=== PATIENT | female | born 1960 | race African-American/Black ===

== ENCOUNTER 2018-03-09 17:15 | Observation (INO) ==
[2018-03-09] MEDS ORDERED: SODIUM CHLORIDE 0.9% 1,000 ML IV STA (20:18)
[2018-03-09] MEDS ORDERED: DICYCLOMINE 20 MG/2 ML AMP IM ONE (20:18)
[2018-03-09] MEDS ORDERED: METOCLOPRAMIDE 10 MG/2 ML VIAL IV STA (20:18)
[2018-03-09 21:11] LABS: Basophils % 0.5 % (0.0-0.8); Eosinophils % 0.4 % (0.00-10.9); Hematocrit 38.6 VOL% (35.7-47.0); Immature Granulocytes % 0.5 %; Immature Granulocytes Absolute 0.04 #; Lymphocytes # 0.9 10*3/uL (1.4-4.0); Lymphocytes % 10.6 % (21.3-54.2); Mean Corpuscular HGB Conc 33.7 GM/DL (32-36); Mean Corpuscular Hemoglobin 26 PG (27-34); Mean Corpuscular Volume 77.7 FL (87-102); Mean Platelet Volume 12.2 FL (9.6-12.0); Monocytes # 0.6 10*3/uL (0.11-0.8); Monocytes % 7.9 % (1.7-12.7); Neutrophils # 6.5 10*3/uL (1.4-7.4); Neutrophils % 80.1 % (38.7-73.9); Platelet Count 170 T/CUMM (130-400); Red Blood Count 4.97 MC/CUMM (3.8-5.5); Red Cell Distribution Width 13.3 % (9.3-17.3); White Blood Count 8.1 T/CUMM (4-12)
[2018-03-09] MEDS ORDERED: POTASSIUM BICARB EFFERVESCENT 25 MEQ TABLET PO ONE (21:17)
[2018-03-09 21:38] LABS: Albumin 3.5 G/DL (3.4-5.0); Bilirubin,Total 0.4 MG/DL (0.2-1.0); Calcium 10.9 MG/DL (8.5-10.1); Osmolality,Calculated 286.5 MOS/KG (273-304); Potassium 4.6 MMOL/L (3.5-5.1); Total Protein 7.6 G/DL (6.4-8.3)
[2018-03-09] MEDS ORDERED: INSULIN REGULAR 100 UNIT/ML IV STA (21:53)
[2018-03-09 21:59] LABS: Apearance,Urine CLEAR (Clear); Bacteria,Urine Occasional /HPF (Few); Bilirubin,Urine Negative (Negative); Blood, Urine Negative (Negative); Glucose,Urine (UA) >=500 mg/dL (Negative); Ketones,Urine 5 mg/dL (Negative); Nitrite,Urine Negative (Negative); Protein,Urine Negative; RBC,Urine 2 /HPF (0-4); Squamous Epithelial Cell,Urine Occasional /HPF (0-10); Urine Color Yellow (Yellow); Urine Specific Gravity 1.021 (1.001-1.035); Urine Urobilinogen < 2.0 EU/DL (0.2-1.0); WBC,Urine 5 /HPF (0-6)
[2018-03-09] MEDS ORDERED: ACETAMINOPHEN 325 MG TABLET PO PRN (23:04)
[2018-03-09] MEDS ORDERED: ONDANSETRON 4 MG/2 ML VIAL IV PRN (23:04)
[2018-03-09] MEDS ORDERED: HYDROmorphone 2 MG/1 ML VIAL IV PRN (23:24)
[2018-03-09] MEDS ORDERED: ENOXAPARIN 40 MG/0.4 ML SYRINGE SUBCUT SCH (23:30)
[2018-03-09] MEDS ORDERED: DEXTROSE 50% 25 GM/50 ML VIAL IV PRN (23:51)
[2018-03-09] MEDS ORDERED: GLUCAGON 1 MG VIAL IM PRN (23:51)
[2018-03-10] MEDS: SODIUM CHLORIDE 0.9% 1,000 ML IV SCH ×3 (01:44→19:23)
[2018-03-10 03:13] LABS: Basophils % 0.4 % (0.0-0.8); Eosinophils # 0.1 10*3/uL (0.0-0.87); Eosinophils % 0.7 % (0.00-10.9); Hematocrit 34.5 VOL% (35.7-47.0); Hemoglobin 11.4 GM/DL (12.0-16.0); Immature Granulocytes % 0.3 %; Immature Granulocytes Absolute 0.02 #; Lymphocytes # 1.2 10*3/uL (1.4-4.0); Lymphocytes % 17.4 % (21.3-54.2); Mean Corpuscular Hemoglobin 26 PG (27-34); Mean Corpuscular Volume 77.4 FL (87-102); Mean Platelet Volume 11.9 FL (9.6-12.0); Monocytes # 0.5 10*3/uL (0.11-0.8); Monocytes % 7.4 % (1.7-12.7); Neutrophils # 5.3 10*3/uL (1.4-7.4); Neutrophils % 73.8 % (38.7-73.9); Platelet Count 158 T/CUMM (130-400); Red Blood Count 4.46 MC/CUMM (3.8-5.5); Red Cell Distribution Width 13.7 % (9.3-17.3); White Blood Count 7.1 T/CUMM (4-12)
[2018-03-10 03:39] LABS: Calcium 9.9 MG/DL (8.5-10.1); Potassium 4.2 MMOL/L (3.5-5.1); Thyroid Stimulating Hormone 0.046 uIU/ml (0.358-3.74)
[2018-03-10 07:19] LABS: % Iron Saturation 8.5 % (18-50)
[2018-03-10] MEDS ORDERED: LEVOTHYROXINE 150 MCG TABLET PO SCH (07:30)
[2018-03-10] MEDS ORDERED: glyBURIDE 5 MG TABLET PO SCH (08:00)
[2018-03-10] MEDS: GABAPENTIN 100 MG CAPSULE PO SCH ×3 (08:12→21:27)
[2018-03-10] MEDS: BISACODYL 5 MG TABLET PO SCH ×4 (08:12→23:50)
[2018-03-10] MEDS: LISINOPRIL/HCTZ 20-12.5 MG TABLET PO SCH (08:12)
[2018-03-10] MEDS: ASPIRIN EC 81 MG TABLET PO SCH (08:12)
[2018-03-10] MEDS: INSULIN REGULAR 100 UNIT/ML SUBCUT SCH ×4 (08:30→21:28)
[2018-03-10] MEDS: INSULIN NPH/REGULAR 70/30 100 UNIT/ML SUBCUT SCH ×2 (08:30→19:34)
[2018-03-10] MEDS ORDERED: PRAMOXINE/HYDROCORTISONE RECTAL FOAM 10 GM CAN TOP PRN (12:05)
[2018-03-10] MEDS ORDERED: POLYETHYLENE GLYCOL 3350/ELECTROLYTES 4,000 ML BOTTLE PO ONE (18:00)
[2018-03-10] MEDS ORDERED: MAGNESIUM CITRATE 300 ML BOTTLE PO ONE (21:00)
[2018-03-11] MEDS: SODIUM CHLORIDE 0.9% 1,000 ML IV SCH (02:58)
[2018-03-11 05:06] LABS: Basophils % 0.4 % (0.0-0.8); Eosinophils # 0.1 10*3/uL (0.0-0.87); Hematocrit 33.1 VOL% (35.7-47.0); Hemoglobin 10.6 GM/DL (12.0-16.0); Immature Granulocytes % 0.2 %; Immature Granulocytes Absolute 0.01 #; Lymphocytes # 2.2 10*3/uL (1.4-4.0); Lymphocytes % 43.2 % (21.3-54.2); Mean Corpuscular Hemoglobin 25 PG (27-34); Mean Corpuscular Volume 79.4 FL (87-102); Mean Platelet Volume 12.4 FL (9.6-12.0); Monocytes # 0.5 10*3/uL (0.11-0.8); Monocytes % 10.2 % (1.7-12.7); Neutrophils # 2.2 10*3/uL (1.4-7.4); Platelet Count 144 T/CUMM (130-400); Red Blood Count 4.17 MC/CUMM (3.8-5.5); Red Cell Distribution Width 13.7 % (9.3-17.3)
[2018-03-11 05:25] LABS: Calcium 9.5 MG/DL (8.5-10.1); Free T4 (Free Thyroxine) 1.82 NG/DL (0.76-1.46); Osmolality,Calculated 279.5 MOS/KG (273-304); Potassium 3.9 MMOL/L (3.5-5.1)
[2018-03-11] MEDS ORDERED: LEVOTHYROXINE 125 MCG TABLET PO SCH (06:30)
[2018-03-11] MEDS ORDERED: FERROUS SULFATE 325 MG TABLET PO SCH (09:30)
[2018-03-11] MEDS: INSULIN NPH/REGULAR 70/30 100 UNIT/ML SUBCUT SCH (09:47)
[2018-03-11] MEDS: INSULIN REGULAR 100 UNIT/ML SUBCUT SCH ×2 (09:47→13:30)
[2018-03-11] MEDS: GABAPENTIN 100 MG CAPSULE PO SCH (09:48)
[2018-03-11] MEDS: ASPIRIN EC 81 MG TABLET PO SCH (09:48)
[2018-03-11] MEDS: LISINOPRIL/HCTZ 20-12.5 MG TABLET PO SCH (09:48)
[2018-03-11] MEDS ORDERED: LIDOCAINE 100 MG/5 ML SYRINGE ONE (10:00)
[2018-03-11] MEDS ORDERED: PROPOFOL 200 MG/20 ML VIAL IV ONE (10:00)
[2018-03-11 13:26] VITALS: BP 112/75
== END 2018-03-11 14:40 | disposition home or self-care (01) ==
LOC: N.ED 17:15 → N.EDINP 17:15 → N.4E 03-10 00:29
PROVIDERS: ADMIT Internal Medicine; ATTEND Internal Medicine

== ENCOUNTER 2020-04-18 08:20 | Inpatient (IN) ==
[2020-04-18] MEDS ORDERED: SODIUM CHLORIDE 0.9% 1,000 ML IV STA (08:57)
[2020-04-18] MEDS ORDERED: DEXAMETHASONE 4 MG/1 ML VIAL IV STA (08:58)
[2020-04-18 09:08] LABS: Basophils % 0.4 % (0.0-0.8); Hematocrit 37.7 VOL% (35.7-47.0); Hemoglobin 12.7 GM/DL (12.0-16.0); Immature Granulocytes % 0.4 %; Immature Granulocytes Absolute 0.02 #; Lymphocytes # 1.2 10*3/uL (1.4-4.0); Lymphocytes % 22.4 % (21.3-54.2); Mean Corpuscular HGB Conc 33.7 GM/DL (32-36); Mean Corpuscular Volume 79.5 FL (87-102); Mean Platelet Volume 10.3 FL (9.6-12.0); Monocytes % 15.8 % (1.7-12.7); Platelet Count 161 T/CUMM (130-400); Red Blood Count 4.74 MC/CUMM (3.8-5.5); Red Cell Distribution Width 13.9 % (9.3-17.3); White Blood Count 5.5 T/CUMM (4-12)
[2020-04-18 09:20] LABS: INR 1.1; PT Patient Result 11.7 SECS (9.8-11.9)
[2020-04-18 09:27] LABS: Lymphocytes 20 % (20-55); Platelet Estimate Adequate; Segmented Neutrophils 72 % (50-85); Total Cells Counted 100
[2020-04-18 09:28] LABS: Hypochromasia Slight; Microcytosis 1+; Ovalocytes Slight
[2020-04-18] MEDS ORDERED: DILTIAZEM 50 MG/10 ML VIAL IV STA (09:37)
[2020-04-18] MEDS ORDERED: dilTIAZem Drip 125 MG/125 ML PREMIX IV ONE (09:37)
[2020-04-18 09:38] LABS: Albumin 2.8 G/DL (3.4-5.0); Bilirubin,Total 0.6 MG/DL (0.2-1.0); Calcium 9.6 MG/DL (8.5-10.1); Ferritin 844.6 ng/ml (8-252); Osmolality,Calculated 265.7 MOS/KG (273-304); Total Protein 6.5 G/DL (6.4-8.3)
[2020-04-18] MEDS ORDERED: DILTIAZEM 25 MG/5 ML VIAL IV ONE (09:38)
[2020-04-18] MEDS: dilTIAZem Drip 125 MG/125 ML PREMIX IV SCH (09:41)
[2020-04-18] MEDS ORDERED: ENOXAPARIN 100 MG/ML SYRINGE SUBCUT STA (10:25)
[2020-04-18] MEDS ORDERED: ENOXAPARIN 120 MG/0.8 ML SYRINGE SUBCUT ONE (10:41)
[2020-04-18] MEDS ORDERED: ONDANSETRON 4 MG/2 ML VIAL IV PRN (10:58)
[2020-04-18] MEDS ORDERED: ACETAMINOPHEN 325 MG TABLET PO PRN (10:58)
[2020-04-18] MEDS: SODIUM CHLORIDE 0.9% 1,000 ML IV SCH ×2 (11:10→21:45)
[2020-04-18] MEDS ORDERED: GLUCAGON 1 MG VIAL IM PRN (14:11)
[2020-04-18] MEDS ORDERED: DEXTROSE 50% 25 GM/50 ML VIAL IV PRN (14:11)
[2020-04-18 15:05] LABS: Thyroid Stimulating Hormone 0.631 uIU/ml (0.358-3.74)
[2020-04-18] MEDS ORDERED: METHOTREXATE 2.5 MG TABLET PO SCH (16:00)
[2020-04-18] MEDS ORDERED: REMDESIVIR 200 MG in SODIUM CHLORIDE 0.9% 210 ML IV ONE (17:00)
[2020-04-18] MEDS ORDERED: SODIUM CHLORIDE 0.9% 100 ML IV ONE (17:08)
[2020-04-18] MEDS: DEXAMETHASONE 4 MG/1 ML VIAL IV SCH (17:12)
[2020-04-18] MEDS: cefTRIAXone 1,000 MG in SYRINGE 1 EACH IV SCH (17:12)
[2020-04-18] MEDS: INSULIN LISPRO 100 UNIT/ML SUBCUT SCH ×2 (18:00→21:45)
[2020-04-18] MEDS: BISOPROLOL 5 MG TABLET PO SCH ×2 (18:42→21:45)
[2020-04-18] MEDS ORDERED: MAGNESIUM SULF RIDER 2 GM in PREMIX 1 EACH IV ONE (18:46)
[2020-04-18] MEDS: ATORVASTATIN 10 MG TABLET PO SCH (21:45)
[2020-04-18] MEDS: FAMOTIDINE 20 MG TABLET PO SCH (21:45)
[2020-04-18] MEDS: glipiZIDE 5 MG TABLET PO SCH (21:45)
[2020-04-18] MEDS: GABAPENTIN 300 MG CAPSULE PO SCH (21:45)
[2020-04-18] MEDS: MAGNESIUM CHLORIDE 64 MG TABLET PO SCH (21:45)
[2020-04-18] MEDS: BENZONATATE 100 MG CAPSULE PO PRN (21:45)
[2020-04-18] MEDS: DOCUSATE SODIUM 100 MG CAPSULE PO SCH (21:45)
[2020-04-18] MEDS: ASCORBIC ACID 500 MG TABLET PO SCH (21:45)
[2020-04-19] MEDS: ALBUTEROL INHALER 18 GM INH SCH ×5 (00:31→18:09)
[2020-04-19] MEDS: SODIUM CHLORIDE 0.9% 1,000 ML IV SCH ×5 (02:58→21:05)
[2020-04-19] MEDS: DEXAMETHASONE 4 MG/1 ML VIAL IV SCH ×2 (04:17→16:26)
[2020-04-19] MEDS: LEVOTHYROXINE 150 MCG TABLET PO SCH (06:06)
[2020-04-19 06:32] LABS: Basophils % 0.3 % (0.0-0.8); Hematocrit 33.4 VOL% (35.7-47.0); Hemoglobin 11.1 GM/DL (12.0-16.0); Immature Granulocytes % 0.9 %; Immature Granulocytes Absolute 0.03 #; Lymphocytes # 0.7 10*3/uL (1.4-4.0); Lymphocytes % 19.6 % (21.3-54.2); Mean Corpuscular HGB Conc 33.2 GM/DL (32-36); Mean Corpuscular Volume 80.9 FL (87-102); Mean Platelet Volume 11.1 FL (9.6-12.0); Monocytes % 11.7 % (1.7-12.7); Neutrophils % 67.5 % (38.7-73.9); Platelet Count 171 T/CUMM (130-400); Red Blood Count 4.13 MC/CUMM (3.8-5.5); White Blood Count 3.3 T/CUMM (4-12)
[2020-04-19 06:58] LABS: Band Neutrophils 2 % (0-10); Hypochromasia 1+; Lymphocytes 15 % (20-55); Microcytosis 1+; Platelet Estimate Adequate; Segmented Neutrophils 69 % (50-85); Total Cells Counted 100
[2020-04-19 07:00] LABS: Blood Urea Nitrogen 27 MG/DL (7-18); Calcium 9.3 MG/DL (8.5-10.1); Estimated Glom Filtration Rate 49 ML/MIN; Glucose 322 MG/DL (74-106); Osmolality,Calculated 282.4 MOS/KG (273-304); Troponin I < 0.015 NG/ML (0.00-0.045)
[2020-04-19] MEDS: INSULIN LISPRO 100 UNIT/ML SUBCUT SCH ×4 (09:16→21:04)
[2020-04-19] MEDS: ENOXAPARIN 120 MG/0.8 ML SYRINGE SUBCUT SCH (09:16)
[2020-04-19] MEDS: BISOPROLOL 5 MG TABLET PO SCH (09:16)
[2020-04-19] MEDS: DOCUSATE SODIUM 100 MG CAPSULE PO SCH ×2 (09:17→20:20)
[2020-04-19] MEDS: ASCORBIC ACID 500 MG TABLET PO SCH ×2 (09:17→20:20)
[2020-04-19] MEDS: glipiZIDE 5 MG TABLET PO SCH ×2 (09:18→20:20)
[2020-04-19] MEDS: BENZONATATE 100 MG CAPSULE PO PRN ×2 (09:18→20:20)
[2020-04-19] MEDS: GABAPENTIN 300 MG CAPSULE PO SCH ×3 (09:18→20:20)
[2020-04-19] MEDS: MAGNESIUM CHLORIDE 64 MG TABLET PO SCH ×2 (09:18→20:20)
[2020-04-19] MEDS: ASPIRIN EC 81 MG TABLET PO SCH (09:18)
[2020-04-19] MEDS: PANTOPRAZOLE 40 MG TABLET PO SCH (09:18)
[2020-04-19] MEDS: FAMOTIDINE 20 MG TABLET PO SCH ×2 (09:19→20:20)
[2020-04-19] MEDS: dilTIAZem Drip 125 MG/125 ML PREMIX IV SCH (10:25)
[2020-04-19] MEDS: REMDESIVIR 100 MG in SODIUM CHLORIDE 0.9% 230 ML IV SCH (11:55)
[2020-04-19] MEDS ORDERED: SODIUM CHLORIDE 0.9% 1,000 ML IV PRN (13:37)
[2020-04-19] MEDS: cefTRIAXone 1,000 MG in SYRINGE 1 EACH IV SCH (16:25)
[2020-04-19] MEDS: ATORVASTATIN 10 MG TABLET PO SCH (20:20)
[2020-04-19] MEDS: carvediloL 3.125 MG TABLET PO SCH (20:23)
[2020-04-20] MEDS: ALBUTEROL INHALER 18 GM INH SCH ×4 (00:20→19:32)
[2020-04-20] MEDS: DEXAMETHASONE 4 MG/1 ML VIAL IV SCH ×2 (04:16→16:41)
[2020-04-20] MEDS: LEVOTHYROXINE 150 MCG TABLET PO SCH (06:05)
[2020-04-20 06:10] LABS: Hematocrit 32.9 VOL% (35.7-47.0); Hemoglobin 11.2 GM/DL (12.0-16.0); Immature Granulocytes % 0.8 %; Immature Granulocytes Absolute 0.06 #; Lymphocytes # 0.8 10*3/uL (1.4-4.0); Lymphocytes % 10.6 % (21.3-54.2); Mean Corpuscular Volume 79.3 FL (87-102); Mean Platelet Volume 10.9 FL (9.6-12.0); Monocytes % 3.7 % (1.7-12.7); Neutrophils % 84.9 % (38.7-73.9); Platelet Count 205 T/CUMM (130-400); Red Blood Count 4.15 MC/CUMM (3.8-5.5); Red Cell Distribution Width 14.2 % (9.3-17.3); White Blood Count 7.5 T/CUMM (4-12)
[2020-04-20 06:52] LABS: Calcium 9.7 MG/DL (8.5-10.1); Osmolality,Calculated 282.2 MOS/KG (273-304)
[2020-04-20] MEDS: REMDESIVIR 100 MG in SODIUM CHLORIDE 0.9% 230 ML IV SCH (08:58)
[2020-04-20] MEDS: ENOXAPARIN 120 MG/0.8 ML SYRINGE SUBCUT SCH (08:59)
[2020-04-20] MEDS: ASPIRIN EC 81 MG TABLET PO SCH (08:59)
[2020-04-20] MEDS: carvediloL 3.125 MG TABLET PO SCH (08:59)
[2020-04-20] MEDS: FAMOTIDINE 20 MG TABLET PO SCH ×2 (08:59→21:31)
[2020-04-20] MEDS: BENZONATATE 100 MG CAPSULE PO PRN ×2 (08:59→15:47)
[2020-04-20] MEDS: glipiZIDE 5 MG TABLET PO SCH ×2 (09:00→21:31)
[2020-04-20] MEDS: PANTOPRAZOLE 40 MG TABLET PO SCH (09:00)
[2020-04-20] MEDS: MAGNESIUM CHLORIDE 64 MG TABLET PO SCH ×2 (09:00→21:31)
[2020-04-20] MEDS: DOCUSATE SODIUM 100 MG CAPSULE PO SCH ×2 (09:00→21:31)
[2020-04-20] MEDS: GABAPENTIN 300 MG CAPSULE PO SCH ×3 (09:00→21:31)
[2020-04-20] MEDS: INSULIN LISPRO 100 UNIT/ML SUBCUT SCH ×4 (09:00→21:31)
[2020-04-20] MEDS: ASCORBIC ACID 500 MG TABLET PO SCH ×2 (09:06→21:32)
[2020-04-20] MEDS: cefTRIAXone 1,000 MG in SYRINGE 1 EACH IV SCH (15:44)
[2020-04-20] MEDS: ATORVASTATIN 10 MG TABLET PO SCH (21:32)
[2020-04-21] MEDS: ALBUTEROL INHALER 18 GM INH SCH ×4 (01:14→19:40)
[2020-04-21] MEDS: DEXAMETHASONE 4 MG/1 ML VIAL IV SCH ×2 (05:04→16:21)
[2020-04-21 05:31] LABS: Hematocrit 35.7 VOL% (35.7-47.0); Hemoglobin 11.9 GM/DL (12.0-16.0); Immature Granulocytes % 0.5 %; Immature Granulocytes Absolute 0.03 #; Lymphocytes # 0.6 10*3/uL (1.4-4.0); Lymphocytes % 9.7 % (21.3-54.2); Mean Corpuscular HGB Conc 33.3 GM/DL (32-36); Mean Corpuscular Volume 79.7 FL (87-102); Mean Platelet Volume 11.5 FL (9.6-12.0); Monocytes % 2.7 % (1.7-12.7); Neutrophils % 87.1 % (38.7-73.9); Platelet Count 242 T/CUMM (130-400); Red Blood Count 4.48 MC/CUMM (3.8-5.5); Red Cell Distribution Width 14.3 % (9.3-17.3)
[2020-04-21 05:53] LABS: Osmolality,Calculated 284.1 MOS/KG (273-304)
[2020-04-21] MEDS: LEVOTHYROXINE 150 MCG TABLET PO SCH (06:39)
[2020-04-21] MEDS: ASCORBIC ACID 500 MG TABLET PO SCH ×2 (08:59→21:41)
[2020-04-21] MEDS: PANTOPRAZOLE 40 MG TABLET PO SCH (08:59)
[2020-04-21] MEDS: MAGNESIUM CHLORIDE 64 MG TABLET PO SCH ×2 (08:59→21:41)
[2020-04-21] MEDS: ASPIRIN EC 81 MG TABLET PO SCH (08:59)
[2020-04-21] MEDS: FAMOTIDINE 20 MG TABLET PO SCH ×2 (08:59→21:41)
[2020-04-21] MEDS: BENZONATATE 100 MG CAPSULE PO PRN (08:59)
[2020-04-21] MEDS: DOCUSATE SODIUM 100 MG CAPSULE PO SCH ×2 (08:59→21:41)
[2020-04-21] MEDS: glipiZIDE 5 MG TABLET PO SCH ×2 (08:59→21:41)
[2020-04-21] MEDS: GABAPENTIN 300 MG CAPSULE PO SCH ×3 (08:59→21:41)
[2020-04-21] MEDS: ENOXAPARIN 120 MG/0.8 ML SYRINGE SUBCUT SCH (09:00)
[2020-04-21] MEDS ORDERED: carvediloL 3.125 MG TABLET PO SCH (09:00)
[2020-04-21] MEDS: INSULIN LISPRO 100 UNIT/ML SUBCUT SCH ×4 (09:00→21:41)
[2020-04-21] MEDS: REMDESIVIR 100 MG in SODIUM CHLORIDE 0.9% 230 ML IV SCH (09:03)
[2020-04-21] MEDS ORDERED: hydrALAZINE 20 MG/1 ML VIAL IV PRN (09:44)
[2020-04-21] MEDS: dilTIAZem Drip 125 MG/125 ML PREMIX IV SCH (11:25)
[2020-04-21] MEDS: cefTRIAXone 1,000 MG in SYRINGE 1 EACH IV SCH (16:21)
[2020-04-21] MEDS: ATORVASTATIN 10 MG TABLET PO SCH (21:41)
[2020-04-22] MEDS: ALBUTEROL INHALER 18 GM INH SCH ×3 (01:32→12:49)
[2020-04-22] MEDS: DEXAMETHASONE 4 MG/1 ML VIAL IV SCH (04:21)
[2020-04-22] MEDS: LEVOTHYROXINE 150 MCG TABLET PO SCH (06:24)
[2020-04-22] MEDS: REMDESIVIR 100 MG in SODIUM CHLORIDE 0.9% 230 ML IV SCH (10:17)
[2020-04-22] MEDS: ASCORBIC ACID 500 MG TABLET PO SCH (10:19)
[2020-04-22] MEDS: BENZONATATE 100 MG CAPSULE PO PRN (10:19)
[2020-04-22] MEDS: DOCUSATE SODIUM 100 MG CAPSULE PO SCH (10:20)
[2020-04-22] MEDS: glipiZIDE 5 MG TABLET PO SCH (10:20)
[2020-04-22] MEDS: ENOXAPARIN 120 MG/0.8 ML SYRINGE SUBCUT SCH (10:20)
[2020-04-22] MEDS: ASPIRIN EC 81 MG TABLET PO SCH (10:20)
[2020-04-22] MEDS: INSULIN LISPRO 100 UNIT/ML SUBCUT SCH ×2 (10:21→12:48)
[2020-04-22] MEDS: PANTOPRAZOLE 40 MG TABLET PO SCH (10:21)
[2020-04-22] MEDS: FAMOTIDINE 20 MG TABLET PO SCH (10:21)
[2020-04-22] MEDS: MAGNESIUM CHLORIDE 64 MG TABLET PO SCH (10:21)
[2020-04-22] MEDS: GABAPENTIN 300 MG CAPSULE PO SCH (10:21)
[2020-04-22 12:17] VITALS: BP 141/92
== END 2020-04-22 13:30 | disposition home or self-care (01) | DRG 137 ==
LOC: N.ED 08:20 → N.EDINP 10:22 → N.2E 19:21
PROVIDERS: ADMIT Family Medicine; ATTEND Family Medicine